=== PATIENT | female | born 1985 | race Asian ===

== ENCOUNTER 2016-08-19 08:38 | Day surgery (SDC) | payer OTHER ==
[~2016-08-19] VITALS: Ht 144.8 cm; Wt 38.1 kg
[2016-08-19] VITALS (12 sets, daily range): BP systolic 89–106; BP diastolic 57–76; PULSE 52–78; RESP 14–24; Ht 144.8 cm; Wt 38.1 kg
[~2016-08-19 08:38] MED LIST: CEFAZOLIN 2 GM/50 ML (PMX) 50 ML IVPB SCH; SOD CHLORIDE 0.9% 1,000 ML IV SCH
[2016-08-19] MEDS ORDERED: BUPIVACAINE 0.25% (MPF) 30 ML INJ ONE (09:38)
[2016-08-19] MEDS ORDERED: EPHEDrine SULFATE 50 MG/5 ML SYG IV PRN (10:00)
[2016-08-19] MEDS ORDERED: MEPERIDINE 25 MG INJ IV PRN (10:00)
[2016-08-19] MEDS ORDERED: PROPOFOL 60 ML ONE (10:00)
[2016-08-19] MEDS ORDERED: FENTAnyl 50 MCG/ML VIAL IV PRN ×3 (10:00)
[2016-08-19] MEDS ORDERED: ONDANSETRON 4 MG INJ IV PRN (10:00)
[2016-08-19] MEDS ORDERED: HYDROmorphONE (0.2 MG/ML) 10ML SYG IV PRN ×3 (10:00)
[2016-08-19] MEDS ORDERED: hydrALAzine 20 MG INJ IV PRN (10:00)
[2016-08-19] MEDS ORDERED: LABETALOL HCL 20MG INJ IV PRN (10:00)
[2016-08-19] MEDS ORDERED: LIDOCAINE 2% (SDV) 5 ML INJ ONE (10:00)
[2016-08-19] MEDS ORDERED: FENTAnyl 50 MCG/ML VIAL ONE (10:01)
[2016-08-19] MEDS ORDERED: CEFAZOLIN 1 GM INJ ONE (10:16)
[2016-08-19] MEDS ORDERED: ROCURONIUM 50 MG INJ ONE (10:17)
[2016-08-19] MEDS ORDERED: BUPIVACAINE 0.25% (MPF) 10 ML 10 ML VIAL INJ ONE (10:29)
[2016-08-19] MEDS ORDERED: NEOSTIGMINE 3 MG/3 ML SYRINGE ONE (10:35)
[2016-08-19] MEDS ORDERED: GLYCOPYRROLATE 0.4 MG INJ ONE (10:35)
[2016-08-19] MEDS ORDERED: HYDROCODONE/APAP (5/325) TAB PO ONE (11:00)
--- NOTE | 2016-08-19 11:32 | OPR ---
DATE OF OPERATION: 08/19/2016 INDICATION: This is a 31-year-old female with a right perianal mass. She requests surgical excisio n. Risks, alternatives, benefits, and personnel were discussed with the patient. Patient expresses understanding and consents to the operation. PREOPERATIVE DIAGNOSIS: Right perianal mass. POSTOPERATIVE DIAGNOSIS: Right perianal mass. OPERATION PERFORMED: 1. Excision of right anal mass at the 5 o'clock position in jackknife prone position with 4 cm size incision and 4 x 1 cm size mass. 2. Localized adjacent tissue transfer with the use of skin flaps near the genitalia, Defect size is 8 square cm, CPT code 23801. 3. Rigid proctoscopy. 4. Therapeutic injection of Marcaine in the subcutaneous region. CPT code 80858. SURGEON: Saida Metcalf MD SPECIMEN: Right perianal mass. COMPLICATIONS: None. ANESTHESIA: General. DESCRIPTION OF PROCEDURE: The patient was taken to the OR and prepped and draped in the usual steri le fashion. Surgical timeout was performed. IV antibiotics were given. Rectovaginal exam was perf ormed. There is no evidence of any masses that are protruding into the rectal vault or the vaginal vault. An elliptical incision was made over the right perianal mass which is at the 5 o'clock posit ion in jackknife prone and near the vaginal wall. This was excised with a 15 blade and handheld cau emile. There was good hemostasis. Due to the large tissue defect, skin flaps were advanced both vivek es of the incision and reapproximated in a multilayer closure with interrupted 3-0 Vicryl and runnin g 4-0 Monocryl. There was good hemostasis. Additionally, a rigid proctoscopy was performed to conf irm that there is no obstructive masses or lesions or any other lesions in the rectal vault. Therap eutic local anesthesia with Marcaine is injected into the subcutaneous space in that area. Dry dres sings were applied. Dictated By: SAIDA METCALF MD SB/NTS Conf#: [id number] DID#: [id number]
== END 2016-08-19 12:35 | disposition home or self-care (01) ==
LOC: SDS 08:38
PROVIDERS: ATTEND Surgery
DX: N80.8 Other endometriosis (principal); R22.2 Localized swelling, mass and lump, trunk
CPT/HCPCS: 14000; 88307; J0690; J2405; J3010; J2710